=== PATIENT | male | born 1965 | race Caucasian/White ===

== ENCOUNTER 2019-05-13 01:19 | Emergency (ER) | payer OTHER ==
[~2019-05-13] VITALS: Ht 175.3 cm; Wt 104.3 kg
[2019-05-13] MEDS ORDERED: LISI20 PO (02:48)
== END 2019-05-13 07:05 | disposition home or self-care (01) ==
LOC: ER 01:19
DX: S61.216A Laceration without foreign body of right little finger without damage to nail, initial encounter (principal); I10 Essential (primary) hypertension; Z79.899 Other long term (current) drug therapy; W23.0XXA Caught, crushed, jammed, or pinched between moving objects, initial encounter
CPT/HCPCS: 12002; 73140; 99283-25